=== PATIENT | female | born 1970 | race American Indian/Alaskan Native ===

== ENCOUNTER 2017-08-23 10:47 | Emergency (ER) | payer MEDICAID ==
--- NOTE | 2017-08-23 12:50 | Emergency Department Report ---
Eye Injury/Foreign Body - HPI Duration: 3 Days Eye Location: Bilateral (eyelid upper and lower) Severity: Severe (headache 10 out of 10 frontally.) Tetanus Status: Up to Date Eye Symptoms: Eye Pain: No, Blurred Vision: Yes (blurry vision on and off), Eye Redness: No, Grinding/Hammering Metal: No, Used Eye Protection: No, Contact Lens Use: No, Recalls Injury: No, Photophobia: No Other History: Patient reports that she had falls eyelash placed and developed itching and swelling to her upper and lower eyelids and around her eye. She reports that it was worse this morning but it's getting better. Denies any shortness of breath, cough, wheezing, stridor or difficulty breathing. Denies any drooling or sore throat. She says she has a headache on and off 10 out of 10 but denies any pain to her eye. Triage note said the patient was having bilateral eye pain but patient states she is having pain to her head at the front. She reports her blood pressure is elevated and that she was on losartan in the past but ran out and did not go to get refilled because she was not fond of her primary care doctor. 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 She has not taken any medication for headache and nothing makes pain better and nothing makes it worse and reports that her pain to her head is intermittent. She said in the past when she had her blood pressure elevated she had similar eye symptoms with her vision and headache. She has not taken her blood pressure medication in one month. Pain is achy. ED Review of Systems ROS: Stated complaint: EYE PROBLEMS Other details as noted in HPI Constitutional: denies: chills, fever, weakness Eyes: vision change (intermittent blurred vision), other (swelling around the eyelids). denies: eye pain, eye discharge ENT: denies: ear pain, throat pain, congestion Respiratory: denies: cough, orthopnea, shortness of breath, SOB with exertion, SOB at rest, stridor, wheezing Cardiovascular: denies: chest pain, palpitations, dyspnea on exertion, edema, syncope Gastrointestinal: denies: abdominal pain, nausea, vomiting, diarrhea Genitourinary: denies: urgency, dysuria, frequency, hematuria, discharge, abnormal menses Musculoskeletal: denies: back pain, joint swelling, arthralgia, myalgia Skin: pruritus. denies: rash, lesions Neurological: headache. denies: weakness, numbness, paresthesias, confusion, abnormal gait, vertigo ED Past Medical Hx - Past Medical History Previous Medical History?: Yes Hx Hypertension: Yes - Surgical History Past Surgical History?: Yes Hx Cholecystectomy: Yes Additional Surgical History: hernia repair, x2 - Family History Family history: hypertension - Social History Smoking Status: Never Smoker Substance Use Type: None Other Social History: and works. - Medications Home Medications: Home Medications Medication Instructions Recorded Confirmed Last Taken Type Cetirizine HCl [ZyrTEC] 10 mg PO QDAY 14 Days #14 capsule 08/23/17 Unknown Rx Losartan Potassium 25 mg PO QDAY 30 Days #30 tablet 08/23/17 Unknown Rx predniSONE [Deltasone] 20 mg PO QDAY 3 Days #3 tab 08/23/17 Unknown Rx Eye Injury Exam - Exam General: Vital signs noted. No distress. Alert and acting appropriately. - Visual Acuity Right Vision Acuity Degree: 20/40 Left Vision Acuity Degree: 20/25 Bilateral Vision Acuity Degree: 20/30 ED Course Vital Signs 08/23/17 11:33 Temperature 98.7 F Pulse Rate 73 Respiratory 20 Rate Blood Pressure 178/108 O2 Sat by Pulse 100 Oximetry - Reevaluation(s) Reevaluation #1: 08/23/17 15:15 Patient given clonidine 0.1 mg by mouth for elevated blood pressure and her blood pressure is now stable and headache and blurred vision has resolved. She was given a physical 60 mg by mouth for allergic reaction localized around eyes and Tylenol 975 mg headache. Swollen around her eyes has decreased significantly. Critical care attestation.: If time is entered above; I have spent that time in minutes in the direct care of this critically ill patient, excluding procedure time. ED Disposition Clinical Impression: Superficial swelling of eyelid, Elevated blood pressure reading with diagnosis of hypertension, Non compliance w medication regimen Minor allergic reaction Qualifiers: Encounter type: initial encounter Qualified Code(s): T78.40XA - Allergy, unspecified, initial encounter Acute headache Qualifiers: Headache type: unspecified Intractability: not intractable Qualified Code(s): R51 - Headache Disposition: DC-01 TO HOME OR SELFCARE Is pt being admited?: No Does the pt Need Aspirin: No Condition: Stable Instructions: Hypertension (ED), Allergies (ED), DASH Eating Plan (ED), Low Sodium Diet (ED), Acute Headache (ED) Additional Instructions: Take medication as prescribed See referral to primary care physician and ophthalmology as requested Please keep a lot of the blood pressure and take to primary care visit with you. Take your blood pressure medication every day as prescribed. If he develops symptoms of elevated blood pressure such as headache, blurred vision, nausea vomiting, dizziness, chest pain or shortness of breath, he is return to the emergency room WILL Prescriptions: Cetirizine HCl [ZyrTEC] 10 mg PO QDAY 14 Days #14 capsule Losartan Potassium 25 mg PO QDAY 30 Days #30 tablet predniSONE [Deltasone] 20 mg PO QDAY 3 Days #3 tab Referrals: JAIR REYES MD [Staff Physician] - 2-3 Days FEDE BACA MD [Staff Physician] - 2-3 Days RUIZ COPE MD [Staff Physician] - 2-3 Days Forms: Work/School Release Form(ED)
[2017-08-23] MEDS ORDERED: CATAPRES PO ONE ×2 (12:56→12:57)
[2017-08-23] MEDS ORDERED: TYLENOL PO ONE (12:56)
[2017-08-23] MEDS ORDERED: DELTASONE PO ONE (12:57)
[2017-08-23 14:10] VITALS: BP 126/87
== END 2017-08-23 15:28 | disposition home or self-care (01) ==
LOC: ED 10:47
DX: I10 Essential (primary) hypertension (principal); T78.40XA Allergy, unspecified, initial encounter
CPT/HCPCS: 99283; J7512